=== PATIENT | female | born 2000 | race Caucasian/White ===

== ENCOUNTER 2019-09-23 06:44 | Observation (INO) | payer BC ==
[~2019-09-23] VITALS: Ht 170.2 cm; Wt 59.9 kg
[2019-09-23] VITALS (12 sets, daily range): BP systolic 105–134; BP diastolic 58–85
--- NOTE | ~2019-09-23 | P ---
[facility] [place] [address] PROCEDURE REPORT Name: LATRICE MCCAULEY Room #: [facility] M.R.#: [id number] Admission: 09/23/19 Attend Phys: Flako Munoz MD Discharge: 09/24/19 Date of : [birth year] Report #: [id number] THIS REPORT FOR: //name// CC: [facility] physician/PCP Flako Munoz PREOPERATIVE DIAGNOSIS: Supraventricular tachycardia. POSTOPERATIVE DIAGNOSIS: AVNRT. HISTORY: The patient is a 19-year-old with recurrent palpitations here for SVT ablation. PROCEDURES PERFORMED: 1. SVT ablation, CPT code 05981. 2. EP with left atrial pacing and recording, CPT code 54722. 3. Program stimulation pacing after IV drug infusion, CPT code 73314. 4. 3D mapping, CPT code 56130. ANESTHESIA: The patient underwent MAC anesthesia with no anesthesia related complications. DESCRIPTION OF PROCEDURE: The patient underwent informed consent. We discussed the details of the procedure including the risks, which include but not limited to bleeding, vascular damage, cardiac perforation, stroke, NH as well as damage to huslia conduction system requiring permanent pacemaker. She understood these risks and is willing to proceed. The patient was brought to the EP laboratory in a fasting and sedated state and prepped and draped in sterile fashion. I injected lidocaine to the bilateral groin regions and obtained access to the bilateral femoral veins placing an 8 and 6-Czech short sheath in the right femoral vein and a 6 and 7-Czech short sheath in the left femoral vein using the modified Seldinger technique. Next, under fluoroscopy, I placed 3 quadripolar catheters at the HRA, His and RV positions and I placed a decapolar catheter into the coronary sinus for left atrial pacing and recording, Of note, it appeared that she had a very vertical coronary sinus. I attempted for about 20 minutes to get the decapolar properly seated into the coronary sinus, but I was unsuccessful. Therefore, I was only able to get CS poles 1, 2, 3, 4, 5, 6 into the CS while the remainder sat out in the right atrium. There was a large ventricular signals as I was likely interventricular branch. Later after I induced arrhythmias, I again attempted to position this into the coronary sinus. Despite multiple attempts, it would not go deeply into the CS. At baseline, the patient was in sinus rhythm with sinus cycle length of 820 milliseconds, AZ interval 145 milliseconds, QRS duration 90 milliseconds, QT interval 390 milliseconds, AH interval 80 milliseconds, HV interval 47 milliseconds. Next, atrial burst pacing was performed and AV block was noted at 430 milliseconds. AV sharonda ERP was noted at [address] [address] PROCEDURE REPORT Name: LATRICE MCCAULEY Room #: 205-P [facility] Pieter M.R.#: [id number] Admission: 09/23/19 Attend Phys: Flako Munoz MD Discharge: 09/24/19 Date of : 98 Report #: [id number] 320 milliseconds at [address] cycle length. It appeared with atrial pacing that the patient would start conducting down the slow pathway. Ventricular pacing was performed and VA block was noted at 420 milliseconds and ventricular ERP was noted at 400 milliseconds at a [address] cycle length with VA conduction that was both midline and decremental. Isoproterenol infusion was started at 2 mcg per minute and AV block was noted at 260 milliseconds. Atrial ERP was noted at 250 milliseconds at [address] cycle length. VA block was noted at 250 milliseconds and ventricular ERP was noted at 170 milliseconds at [address] cycle length. I performed aggressive atrial and ventricular pacing maneuvers and I could not induce any SVT. We tested for about 30 minutes on 2 mcg of isoproterenol. I therefore increased isoproterenol to 3 mcg per minute and again we continued to perform testing and there was nothing easily inducible. However when I would give atrial extrastimuli, I started noticing that the patient would have frequent dual AV sharonda echoes which suggest possible typical AV sharonda reentrant tachycardia. However, I could not get these to sustain. Therefore, we continued testing and were almost done testing and then we eventually induced SVT with a tachycardia cycle length of 270 milliseconds, a septal VA time of 150 milliseconds. At this rapid SVT, it was difficult to entrain. 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 This tachycardia was difficult to induce and again difficult to entrain. 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 3D MAPPING AND ABLATION: A detailed 3D voltage map of the right atrium was created. I used an SR0 sheath and a 4-mm Biosense Foy ablation catheter in the right atrium. I found a nice His cloud. I then found the slow pathway. This was 18 mm away from the His cloud. I performed several ablation lesions within the area of the slow pathway. These resulted in junctional beats. Some of these resulted in slight acceleration of the junctionals I came off. On a few lesions, there were junctionals with no VA conduction and I came off as well. After each burn, conduction was normal. POST-ABLATION FINDINGS: Post-ablation, the patient was started back on isoproterenol, 2 mcg per minute. Pacing was performed and I could no longer induce SVT. The patient's AV block cycle length was longer on isoproterenol infusion initially. I turned off isoproterenol and continued performing testing and AV block was noted to be at 370 milliseconds. I tested the patient again on isoproterenol and no SVT could be induced. Once again, isoproterenol was turned off again and AV block was noted at around 350 milliseconds. Post-ablation, the patient was in sinus rhythm with a sinus cycle length of 525 milliseconds, AZ interval 125 milliseconds, QRS duration 95 milliseconds, QT interval 340 milliseconds, AH interval 79 milliseconds, AH interval 36 milliseconds. AV [facility] [address] [place] [address] PROCEDURE REPORT Name: GARRICKLATRICE Room #: 205-P [facility] Pieter Dave#: [id number] Admission: 09/23/19 Attend Phys: Flako Munoz MD Discharge: 09/24/19 Date of : [birth year] Report #: [id number] block off isoproterenol was 370 milliseconds and AV node ERP was noted at 280 milliseconds at a [address] cycle length. There was an occasional single AV sharonda echo noted, but there was no evidence of any recurrent SVT. CONCLUSIONS: 1. 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 2. Normal SA sharonda function. 3. Normal AV sharonda function. 4. Normal His-Purkinje function. 5. No other inducible arrhythmias on or off isoproterenol. RECOMMENDATIONS: The patient had some 2:1 heart block right after the ablation, but this appeared to resolve with normal conduction off of isoproterenol. I will monitor her overnight and have her undergo a treadmill in the morning to ensure that everything is normal. Perhaps this was related to high vagal tone due to sedation. By: [id number] Flako Munoz MD /nt
[2019-09-23 07:14] LABS: ABSOLUTE NEUTROPHILS 2.7 thou/uL (1.4-8.2); BASOPHILS 0.9 % (0.0-2.0); EOSINOPHILS 2.4 % (0.0-3.0); HEMOGLOBIN 13.3 gm/dL (12.0-15.0); MCHC 33.2 g/dL (28.0-37.0); MCV 90.3 fL (80.0-100.0); MONOCYTES 10.4 % (1.0-8.0); PLATELET COUNT 180 thou/uL (150-400); POLYS 41.3 % (36.0-66.0); RBC 4.43 mil/uL (4.20-5.00); RDW 12.8 % (10.5-14.5); WBC 6.5 thou/uL (4.0-11.0)
[2019-09-23 07:21] LABS: CALCIUM 9.2 mg/dL (8.5-10.1); CREATININE 0.9 mg/dL (0.6-1.0); POTASSIUM 3.9 mmol/L (3.5-5.1)
[2019-09-23] MEDS ORDERED: OTHER MISCELL (07:23)
[2019-09-23 07:24] LABS: PROTIME 9.8 Seconds (9.3-11.4)
[2019-09-23 07:26] LABS: ALBUMIN 3.8 g/dL (3.4-5.0); TOTAL BILIRUBIN 0.9 mg/dL (<0.1-1.0); TOTAL PROTEIN 7.9 g/dL (6.4-8.2)
--- NOTE | 2019-09-23 17:11 | EKG ---
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 09/23/19 1710 1522 152 Artemio Vidal MD, FACC /EPI
--- NOTE | 2019-09-23 18:00 | NUR ---
Received patient from PACU at 1345. She is AOX4 and complains of no pain. Whe states her heels are a little irritated. there is some slight reddness in her heals but no breakdown. All VSS. groing sites are CDI with no hematoma. She was flat until 1445. She ate her dinner and snack. No complaints. Patient resting comfortably at this time. Bed alarm set. Patient will be npo after midnight for stress test.
[2019-09-24 00:17] VITALS: BP 122/65
--- NOTE | 2019-09-24 03:41 | NUR ---
ASSUMED PT CARE AT 1900. PT A/OX4, VITAL SIGNS STABLE, ASSESSMENT CHARTED. PT COMPLAINED OF BACK PAIN, PAIN MEDICATION GIVEN WHICH SEEMED TO HELP. NO COMPLAINTS OF CHEST PAIN. GROIN SITES CLEAN, DRY, INTACT. PT NPO AT MIDNIGHT FOR STRESS TEST IN AM. RESTED WELL THROUGH THE NIGHT. PROGRESSING TOWARD PLAN OF CARE. WILL CONTINUE TO MONITOR.
[2019-09-24 04:26] VITALS: BP 100/55
--- NOTE | 2019-09-24 07:45 | EKG ---
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
[2019-09-24 09:58] VITALS: BP 111/72
[2019-09-24] MEDS ORDERED: PRADAXA150 MG PO (12:35)
[2019-09-24 12:55] VITALS: BP 111/72
--- NOTE | 2019-09-24 13:16 | NUR ---
ASSESSMENT CHARTED. PT ALERT AND ORIENTED. VSS. HAD STRESS TEST THIS AM. DINIES HAVING PAIN OR DISCOMFORT. RIGFHT AND LEFT GROIN INCISION C/D/I. NO HEMATOMA NOTED. SEEN BY DR. HOLLAND ORDERS GIVEN TO DISCHARGE PT TO HOME. DISCHARGE INSTRUCTIONS GIVEN TO PT. PT VERBERLISED UNDERSTANDING. PT LEFT THE FACILITY ACCOMPANIED BY THE FAMILY.
--- NOTE | 2019-09-29 14:09 | D ---
[facility] [place] [address] DISCHARGE SUMMARY Name: LATRICE MCCAULEY Room #: [address] [place] [address] Pieter M.R.#: [id number] Admission: 09/23/19 Attend Phys: Flako Munoz MD Discharge: 09/24/19 Date of : [birth year] Report #: [id number] THIS REPORT FOR: //name// CC: [facility] physician/PCP Flako Munoz DISCHARGE DIAGNOSIS: AVNRT. PROCEDURES PERFORMED: SVT ablation. HISTORY: The patient is a 19-year-old female with a history of palpitations. She recently had an echocardiogram that showed normal LV size and function and also underwent a court monitor, which I reviewed and did not show any clear episodes of SVT. However, given her symptoms, we decided to proceed with SVT ablation. The patient underwent an EP study and had evidence of AV sharonda reentrant tachycardia. This was successfully ablated. There were no conduction issues related to the ablation. Post-ablation testing showed that I could no longer re-induce her SVT. Her AV block cycle length was increased post-ablation, but this improved. HOSPITAL COURSE: The patient was placed in the CCU overnight for monitoring. On the day of discharge, the patient was doing well. She denied any chest pain or shortness of breath. She had some slight heel discomfort from lying in bed. PHYSICAL EXAMINATION: HEART: Was regular rate and rhythm. LUNGS: Clear to auscultation bilaterally. ABDOMEN: Soft, nontender. Bilateral groins showed no bruising or hematoma. EXTREMITIES: Her heel showed no significant issues. On telemetry, she remained in sinus rhythm and her 12-lead EKG showed normal sinus rhythm with normal conduction intervals. On the day of discharge, the patient was placed on a treadmill and this showed normal AV sharonda conduction. As such, her conduction appeared to be normal and it appears that her abnormal conduction was likely due to higher vagal tone and sedation. As such, she was deemed stable for discharge home. I discussed that we will touch base in 3 months to see how she is doing. I recommended that given the fact that she is on control that I would like her to be on Pradaxa 150 mg b.i.d. for 1 week. The patient was stable for discharge home. <ELECTRONICALLY SIGNED> By: Flako Munoz MD 09/29/19 1409 1244 [id number] Flako Munoz MD /nt
== END 2019-09-24 13:18 | disposition home or self-care (01) ==
LOC: CATH 06:44 → TBACV 11:52 → 2N 14:06 → ENTRNSPT 09-24 12:59 → EDTRNSPTSTS 09-24 13:01 → 2N 09-24 13:18
PROVIDERS: ADMIT Internal Medicine Cardiovascular Disease
DX: I47.1 Supraventricular tachycardia (principal); R00.2 Palpitations; Z79.899 Other long term (current) drug therapy
CPT/HCPCS: 62110; 62900; 70005